=== PATIENT | female | born 1985 | race Caucasian/White ===

== ENCOUNTER 2020-06-20 11:34 | Emergency (ER) | payer OTHER, SELFPAY ==
[2020-06-20] VITALS (21 sets, daily range): BP systolic 101–136; BP diastolic 65–88; PULSE 69–102; RESP 12–20; TEMP 36.5; O2SAT 96–100
--- NOTE | ~2020-06-20 | XR_ITS ---
EXAMINATION: XR chest 1V portable DATE: 06/20/2020 12:53 INDICATION: Shortness of breath TECHNIQUE: frontal view of the chest was obtained. COMPARISON: Chest radiograph dated 12/17/2016 FINDINGS: The lungs remain clear with no focal airspace opacities, pulmonary edema, pleural effusion or pneumot horax. The cardiomediastinal silhouette is normal. Visualized bones and soft tissues are unremarkable . IMPRESSION: 1. No acute cardiopulmonary disease. Reviewed, dictated and finalized at location B.
--- NOTE | 2020-06-20 11:42 | ECG_ITS ---
Measurements Intervals [place] Rate: 79 P: 13 TN: 124 QRS: 54 QRSD: 98 T: 0 QT: 412 QTc: 473 Interpretive Statements SINUS RHYTHM BORDERLINE ST-T WAVE ABNORMALITY- INFERIOR LEADS BORDERLINE ECG Electronically Signed On 06-20-2020 11:56:02 CDT by Jhon Baeza D.O.
[2020-06-20 12:13] LABS: Alveolar/Arterial O2 Gradient 11.3 mmHg; Base Excess ABG -0.7 mEq/l (+/-2.0); Carboxyhemoglobin 0.5 % THb (0-2.0); Fractional Inspired Oxygen 21 %; HCO3 ABG 18.7 mEq/l (22.0-26.0); Methemoglobin ABG 0.2 %THb (0-1.5); Oxygen Content ABG 19.3 %vol (16.0-22.0); Oxygen Saturation ABG 98.8 % (95.0-100.0); Oxyhemoglobin 97.3 % THb (90.0-100.0); PO2 ABG 114.6 mmHg (80.0-100.0); PO2 FiO2 Ratio Arterial Blood 5.46 %
[2020-06-20 12:15] LABS: Device ROOM AIR; PCO2 ABG 19.9 mmHg (35.0-45.0); Site Drawn RIGHT BRACHIAL
[2020-06-20] MEDS: ONDANSETRON INJ 4 MG/2 ML VIAL IV PUSH ×2 (12:18→13:49)
[2020-06-20] MEDS: FAMOTIDINE 20 MG/2 ML VIAL IV PUSH (12:18)
[2020-06-20] MEDS: SODIUM CHLORIDE 0.9% IV 1,000 ML 999 ML IV CONT (12:18)
--- NOTE | 2020-06-20 12:35 | ED.DIZZY ---
HPI - Dizziness General Chief Complaint: Dizziness Stated Complaint: LIGHTHEADED/DIZZY Time Seen by Provider: 06/20/20 11:43 Source: patient and EMS Mode of arrival: EMS Limitations: no limitations History of Present Illness HPI Narrative: Patient is a 35-year-old female who presents to emergency department for evaluation of dizziness and near syncope 1 episode of emesis patient was walking her kids and noticed that when she bent over she felt lightheaded and dizzy upon standing which progressed to involve dizziness and an episode of emesis patient denies similar occurrence in the past does not take anything for her symptoms denies recent illness patient on arrival per EMS is acutely ill-appearing and retching without emesis Related Data Home Medications Medication Instructions Recorded Confirmed albuterol sulfate 90 mcg/actuation 2 puff INHALATION Q4-6H PRN gm 07/23/19 12/18/19 aerosol inhaler aspirin 81 mg tablet,delayed 81 mg PO DAILY 12/14/19 12/18/19 release budesonide-formoterol HFA 160 2 puff INHALATION Q12H 12/14/19 12/18/19 mcg-4.5 mcg/actuation aerosol inhaler docosahexaenoic acid 200 mg capsule mg PO 12/14/19 12/18/19 docusate sodium 100 mg capsule 100 mg PO DAILY 12/14/19 12/18/19 famotidine 40 mg tablet 40 mg PO DAILY 12/14/19 12/18/19 Allergies Allergy/AdvReac Type Severity Reaction Status Date / Time No Known Allergies Allergy Verified 12/14/19 08:53 Review of Systems Review of Systems: All systems reviewed & are unremarkable except as noted in HPI and below PMFSH Social History Social History Smoking status: Never smoker Second hand tobacco smoke exposure: No Alcohol intake: current Gender identity (if verbalized by the patient): Female Exam Narrative: Exam Narrative: GENERAL: Ill-appearing, well-nourished, and in no acute distress. HEAD: Normocephalic, atraumatic. EYES: PERRLA and EOMI. ENT: Nares clear, no rhinorrhea or epistaxis. Mucous membranes moist. Oropharynx without tonsillar hypertrophy exudate or other lesions. Bilateral TMs pearly machuca nonbulging NECK: Supple. No adenopathy or masses. CHEST: Clear to auscultation. No respiratory distress. No wheezes rales or rhonchi HEART: Regular rate and rhythm. No murmur heard. Normal peripheral pulses. ABDOMEN: Soft, nontender, nondistended EXTREMITIES: Normal range of motion. No edema. SKIN: Warm, dry, no rash. NEURO: No focal deficits. Alert and oriented x3. Cranial nerves II through XII grossly intact PSYCH: Normal mood and affect. Course Course Emergency Course: Patient presented with dizziness and nausea which has completely resolved no other high risk changes in the blood work or imaging felt appropriate for outpatient reevaluation Vital Signs Vital signs: Vital Signs Temperature 97.7 F 06/20/20 11:42 Pulse Rate 93 06/20/20 11:42 Respiratory Rate 20 06/20/20 11:42 Blood Pressure 130/80 06/20/20 11:42 Pulse Oximetry 98 06/20/20 11:42 Temperature 97.7 F 06/20/20 11:42 Pulse Rate 87 06/20/20 12:39 Respiratory Rate 06/20/20 11:42 Blood Pressure 113/79 06/20/20 12:39 Pulse Oximetry 98 06/20/20 11:42 MDM - Dizziness MDM Narrative Medical decision making narrative: Patient presented with dizziness which has resolved with medications felt appropriate for discharge home agreeing to follow-up with Primary care Lab Data Result diagrams: 06/20/20 13:15 06/20/20 12:16 Labs: Lab Results 06/20/20 06/20/20 06/20/20 Range/Units 12:11 12:16 12:16 WBC (4.5-10.0) K/mm3 RBC (4.2-5.4) M/mm3 Hgb (12.0-15.0) g/dL Hct (37.0-47.0) % MCV (80-100) fl MCH (26-34) pg MCHC (32-36) g/dl RDW (11.5-14.5) % Plt Count (150-375) k/mm3 MPV (7.4-10.4) fl Immature Gran % (Auto) (0-0.5) % Neut % (Auto) (45.5-73.1) % Lymph % (Auto) (18.3-44.2
[2020-06-20 12:44] LABS: INR 1.1; Prothrombin Time 13.4 Seconds (11.1-14.7)
[2020-06-20 12:45] LABS: Partial Thromboplastin Time 28.6 SECONDS (22.3-36.8)
[2020-06-20 12:49] LABS: Lactic Acid Reflex 2.2 mmol/L (0.7-2.1)
[2020-06-20 12:52] LABS: Alanine Aminotransferase 20 U/L (4-35); Albumin Level 4.8 g/dL (3.5-5.1); Alkaline Phosphatase 81 U/L (38-126); Anion Gap 15 mmol/L (8-16); Aspartate Amino Transferase 29 U/L (14-36); Bilirubin,Total 0.6 mg/dL (0.2-1.3); Blood Urea Nitrogen 21 mg/dL (7-17); Calcium 9.5 mg/dL (8.4-10.2); Carbon Dioxide 20 mmol/L (22-30); Chloride 104 mmol/L (98-107); Estimated CRCL calculation 95 ml/min; Estimated Glomerular Filt Rate > 60; Glucose 95 mg/dL (65-105); Lipase 76 U/L (23-300); Potassium 3.5 mmol/L (3.4-5.0); Sodium 139 mmol/L (137-145)
[2020-06-20 12:53] LABS: D Dimer 0.27 ug/mL (<0.48)
[2020-06-20 12:56] LABS: CRP < 0.5 mg/dL (<1.0)
[2020-06-20 13:00] LABS: Add Urine Microscopic? YES; Appearance Urine Clear (Clear); Bilirubin Urine Negative (Negative); Blood Urine Negative (Negative); Color Urine Yellow (Yellow); Glucose Urine UA Negative (Negative); Ketones Urine 2+ mg/dL (Negative); Leukocyte Esterase Ur Negative LEU/UL (Negative); Mucus Urine Rare /lpf; Nitrate Urine Negative (Negative); Protein Urine Negative (Negative); RBC Urine 0-2 /hpf (0-2); Specific Grav Ur 1.025 (1.001-1.035); Squamous Epithelial Cell Urine Occasional /hpf (Few); Urobilinogen Urine Negative mg/dL (<2.0); WBC Urine 0-3 /hpf
[2020-06-20 13:05] LABS: Troponin I < 0.012 ng/mL (0.000-0.034)
[2020-06-20 13:21] LABS: Basophils Percent Auto 0.4 % (0.2-1.2); Eosinophils Percent Auto 0.3 % (0-4.4); Hematocrit 39.1 % (37.0-47.0); Hemoglobin 13.2 g/dL (12.0-15.0); Immature Granulocyte Absolute 0.02 K/mm3 (0.00-0.031); Immature Granulocyte Percent A 0.2 % (0-0.5); Lymphocytes Percent Auto 14.7 % (18.3-44.2); Mean Corpuscular HGB Conc 33.8 g/dl (32-36); Mean Corpuscular Hemoglobin 30.1 pg (26-34); Mean Corpuscular Volume 89.1 fl (80-100); Mean Platelet Volume 10.6 fl (7.4-10.4); Monocytes Absolute Auto 0.6 K/mm3 (0.1-0.6); Monocytes Percent Auto 5.8 % (2.6-8.5); Neutrophils Percent Auto 78.6 % (45.5-73.1); Platelet Count Result 208 k/mm3 (150-375); Red Blood Count 4.39 M/mm3 (4.2-5.4); White Blood Count 10.2 K/mm3 (4.5-10.0)
[2020-06-20] MEDS: LACTATED RINGERS 1,000 ML 999 ML IV CONT (13:30)
[2020-06-20 15:37] LABS: Reflex Lactic Acid Yes or No Add Lactic
== END 2020-06-20 15:05 | disposition home or self-care (01) ==
PROVIDERS: Emergency Medicine Emergency Medical Services; Emergency Provider Emergency Medicine
DX: R42 Dizziness and giddiness (principal); Z79.82 Long term (current) use of aspirin; R94.31 Abnormal electrocardiogram [ECG] [EKG]
CPT/HCPCS: 36415; 36600; 71045; 80053; 81001; 81025; 82375; 82805; 83050; 83605; 83690; 84484; 85025; 85380; 85610; 85730; 86140; 93005; 96361; 96374; 96375; 96376; 99284; J0131; J2405; J7030; J7120

== ENCOUNTER 2021-09-11 12:27 | Outpatient (CLI) | payer OTHER, SELFPAY ==
[2021-09-11 13:25] LABS: Hematocrit 37.2 % (37.0-47.0); Hemoglobin 12.5 g/dL (12.0-15.0); Mean Corpuscular HGB Conc 33.6 g/dl (32-36); Mean Corpuscular Volume 89.4 fl (80-100); Mean Platelet Volume 10.4 fl (7.4-10.4); Platelet Count Result 252 k/mm3 (150-375); Red Blood Count 4.16 M/mm3 (4.2-5.4); Red Cell Distribution Width 14.3 % (11.5-14.5); White Blood Count 8.7 K/mm3 (4.5-10.0)
[2021-09-11 16:50] LABS: Alanine Aminotransferase 21 U/L (4-35); Albumin Level 4.8 g/dL (3.5-5.1); Alkaline Phosphatase 70 U/L (38-126); Anion Gap 11 mmol/L (8-16); Aspartate Amino Transferase 28 U/L (14-36); Bilirubin,Total 0.4 mg/dL (0.2-1.3); Blood Urea Nitrogen 21 mg/dL (7-17); Calcium 9.5 mg/dL (8.4-10.2); Carbon Dioxide 24 mmol/L (22-30); Chloride 103 mmol/L (98-107); Cholesterol 176 mg/dL (0-200); Estimated Glomerular Filt Rate > 60; Glucose 82 mg/dL (65-110); HDL Direct 88 mg/dL; Potassium 4.4 mmol/L (3.4-5.0); Sodium 138 mmol/L (137-145); Triglycerides 46 mg/dL (<150)
[2021-09-11 17:01] LABS: LDL Cholesterol Direct 81 mg/dL
[2021-09-11 17:56] LABS: Folic Acid 10.1 ng/mL (2.76->20)
== END 2021-09-11 12:28 | disposition home or self-care (01) ==
PROVIDERS: Visit Provider Physician Assistant
DX: Z00.00 Encounter for general adult medical examination without abnormal findings (principal)
CPT/HCPCS: 36415; 80053; 80061; 82607; 82746; 84443; 85027